=== PATIENT | female | born 1990 | race Caucasian/White ===

== ENCOUNTER 2018-12-02 21:47 | Emergency (ER) | payer OTHER, MEDICAID ==
[~2018-12-02] VITALS: Ht 157.5 cm; Wt 77.1 kg
[2018-12-02 22:03] VITALS: BP 147/96
--- NOTE | 2018-12-02 22:06 | NUR ---
PT AMBULATED TO LOBBY WITH VSS. PROVIDING URINE.
--- NOTE | 2018-12-02 22:22 | NUR ---
PATIENT AMBULATED TO ER BED 4.
--- NOTE | 2018-12-02 23:17 | NUR ---
PATIENT PRESENTS TO ED WITH C/O DIZZINESS, RIGHT SIDED HEAD PRESSURE, BLURRED VISION, LEFT SIDE CLAVICAL PAIN X1 HR. NO HX. VSS . DENIES N/V/D; SKIN IS PINK/WARM/DRY; AAOX4 WITH EVEN AND STEADY GAIT; LUNGS CLEAR BL; HR EVEN AND REGULAR; PT DENIES ANY FEVER, CP, SOB, OR COUGH AT THIS TIME; PATIENT STATES PAIN OF 5/10 AT THIS TIME; VSS; PATIENT POSITIONED FOR COMFORT; HOB ELEVATED; BEDRAILS UP X2; BED DOWN. ER MD MADE AWARE OF PT STATUS.
--- NOTE | 2018-12-03 01:00 | NUR ---
Patient discharged with v/s stable. Written and verbal after care instructions given and explained. Patient verbalized understanding. Ambulatory with steady gait. All questions addressed prior to discharge. Advised to follow up with PMD.
[2018-12-03 01:02] VITALS: BP 146/90
== END 2018-12-03 01:01 | disposition home or self-care (01) ==
LOC: MED 21:47
DX: F43.9 Reaction to severe stress, unspecified (principal); M25.512 Pain in left shoulder
CPT/HCPCS: 70450; 73000; 81002; 81025; 99284